=== PATIENT | male | born 1990 | race Hispanic/Latino ===

== ENCOUNTER 2023-08-14 06:09 | Emergency (ER) | payer OTHER, SELFPAY ==
[2023-08-14] MEDS ORDERED: ONDANSETRON 4 MG/2 ML VIAL ONE (06:47)
[2023-08-14] MEDS ORDERED: KETOROLAC 30 MG/ML INJ ONE (06:47)
[2023-08-14] MEDS ORDERED: CEFAZOLIN SODIUM 1 GM/VIAL ONE ×2 (06:48→07:48)
[2023-08-14] MEDS ORDERED: MORPHINE 4 MG/ML SYR ONE (06:48)
[2023-08-14] MEDS ORDERED: TDAP (DIPHTH,PERTUSS(ACELL),TET VAC) 0.5 ML VIAL IMVAC ONE (06:49)
[2023-08-14] MEDS ORDERED: NA CHLORIDE 0.9% 1,000 ML ONE (06:49)
[2023-08-14] MEDS ORDERED: NA CHLORIDE 0.9% 50 ML ONE (07:07)
--- NOTE | 2023-08-14 07:18 | RAD REPORT ---
EXAM DESCRIPTION: CT - CTFB CLINICAL HISTORY: facial injury COMPARISON: No comparisons TECHNIQUE: Axial 2 mm thick images of the face were obtained with sagittal and coronal reconstructio n images. All CT scans are performed using dose optimization technique as appropriate and may include automated exposure control or mA/KV adjustment according to patient size. FINDINGS: Minimally displaced left nasal bone fracture.The mandible is intact. Left cheek swelling. Preseptal swelling at the left orbit. Deformity at the left zygomatic arch may be sequela of remote t rauma. Left orbital floor fracture which is probably chronic. There is some herniation of fat but no rectus muscle entrapment. The globes and orbital contents are grossly unremarkable.Mucous retention cyst in the right maxillary sinus. IMPRESSION: Age indeterminate nondisplaced left nasal bone fracture. Remote appearing left orbital floor and zygomatic arch fracture.
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
[2023-08-14] MEDS ORDERED: AMOX/K CLAV 875 MG TAB ONE (07:48)
--- NOTE | 2023-08-14 07:51 | RAD REPORT ---
EXAM DESCRIPTION: RAD - Shoulder Right 2 View - 08/14/2023 7:39 am CLINICAL HISTORY: shoulder injury COMPARISON: Chest Single View dated 08/14/2023 FINDINGS/IMPRESSION: No acute fracture. No malalignment. No significant focal degenerative changes.
--- NOTE | 2023-08-14 07:51 | RAD REPORT ---
EXAM DESCRIPTION: RAD - Chest Single View - 08/14/2023 7:39 am CLINICAL HISTORY: chest injury COMPARISON: No comparisons FINDINGS: Lines: None. Lungs: No evidence of edema or pneumonia. Pleural: No significant pleural effusions or pneumothorax. Cardiac: The heart size is within normal limits. Mediastinum: Within normal limits. Bones: No acute fractures. Other: None IMPRESSION: No acute cardiopulmonary disease.
--- NOTE | 2023-08-14 07:51 | RAD REPORT ---
EXAM DESCRIPTION: RAD - Hand Left 3 View - 08/14/2023 7:39 am CLINICAL HISTORY: left hand pain COMPARISON: No comparisons FINDINGS/IMPRESSION: No acute fracture. No malalignment. No significant focal degenerative changes.
--- NOTE | 2023-08-14 07:51 | RAD REPORT ---
EXAM DESCRIPTION: RAD - Hand Right 3 View - 08/14/2023 7:39 am CLINICAL HISTORY: hand injury COMPARISON: No comparisons FINDINGS/IMPRESSION: No acute fracture. No malalignment. No significant focal degenerative changes.
[2023-08-14 07:52] LABS: Absolute Basophils 0.1 K/uL (0-0.5); Absolute Lymphocytes (CBC) 1.5 K/uL (0.7-4.9); Absolute Monocytes 1.2 K/uL (0.1-1.3); Absolute Neutrophil 7.2 K/uL (1.8-8.0); Basophils % 0.5 % (0-1.3); Eosinophils % 0.2 % (0-4.4); Hematocrit 46.3 % (39.6-49.0); Hemoglobin 15.6 g/dL (13.6-17.9); MCH 29.8 pg (27.0-35.0); MCHC 33.7 g/dL (32.0-36.0); MCV 88.3 fL (80-100); MPV 9.6 fL (7.6-11.3); Monocytes % 11.7 % (3.3-12.3); Neutrophils % 72.6 % (41.7-73.7); Nucleated Red Blood Cells % 0.1 % (0-0); Platelets 154 thou/uL (152-406); RBC Red Blood Cell Count 5.24 M/uL (4.33-5.43)
[2023-08-14 08:09] LABS: Anion Gap 9.3 mEq/L (5.0-15.0); Potassium 4.3 mEq/L (3.5-5.1)
[2023-08-14 10:48] VITALS: BP 138/86; TEMP 98; O2SAT 99
== END 2023-08-14 10:35 ==
LOC: ER 06:09
DX: S02.32XA Fracture of orbital floor, left side, initial encounter for closed fracture (principal); H54.7 Unspecified visual loss; W18.30XA Fall on same level, unspecified, initial encounter; M79.641 Pain in right hand
CPT/HCPCS: 85025; 80048; 36415; 70450; 72125; 70486; 76377; 71045; 73130 ×2; 73030; 96372; 99285; J2405; J0690 ×2; J7030